=== PATIENT | female | born 1985 | race Caucasian/White ===

== ENCOUNTER 2016-02-27 02:30 | Inpatient (IN) | payer OTHER ==
[~2016-02-27] VITALS: Ht 157.5 cm; Wt 100.0 kg
[~2016-02-27 02:30] MED LIST: ACET50TA PO; MOTR200T44 PO; PRENTAB55 PO
[2016-02-27 03:11] LABS: MEAN CORPUSCULAR HEMOGLOBIN 26.6 pg (27.0-33.0); MEAN CORPUSCULAR HGB CONC 32.4 g/dl (32.0-36.5); MEAN CORPUSCULAR VOLUME 82.2 fl (80.0-96.0); RED CELL DISTRIBUTION WIDTH 15.8 % (11.5-14.5); WHITE BLOOD COUNT 10.3 K/mm3 (4.0-10.0)
--- NOTE | 2016-02-27 03:39 | HPE ---
DATE OF ADMISSION: 02/27/2016 HISTORY: 30-year-old (G) 5, para (P) 2 female at 41-4/7 weeks gestation by 10-week ultrasound, estimated date of confinement (EDC) of 02/15/2016, presents after spontaneous loss of fluid at home on the evening of admission. She then began to contract. Leaking continued. She drove from [place], [place] to get here. Contractions became quite intense. COURSE: The patient's care started at 11 weeks gestation on 07/23/2015. Her first trimester blood pressure was 116/66. course was unremarkable. OBSTETRICAL HISTORY: 1. Spontaneous . 2. December 2011, spontaneous delivery of 7 pound 3 ounce male infant at 42 weeks. 3. 2012, spontaneous . 4. 2014, 40-6/7 weeks, 8 pound 7 ounce vaginal delivery of a female infant, no complications. MEDICAL HISTORY: Noncontributory. SURGICAL HISTORY: None. ALLERGIES: No known drug allergies. SOCIAL HISTORY: The patient denies cigarettes, alcohol or drug use. She lives in [place], [place]. FAMILY HISTORY: Noncontributory. PHYSICAL EXAMINATION: VITAL SIGNS: Blood pressure 122/80, weight 228. She appears uncomfortable. HEAD/NECK: Examination normal. LUNGS: Clear. HEART: Regular rate and rhythm. ABDOMEN: Nontender. Gravid. Cervix is 4 cm, 80%, -2, ruptured, clear fluid. EXTREMITIES: Nontender. LABORATORIES: Blood type A positive. Rubella immune. RPR nonreactive. Hepatitis B and C negative. HIV negative. Diabetes screen 77. ASSESSMENT: 30-year-old (G) 5, para (P) 2 female at 41-4/7 weeks gestation presents with ruptured membranes in active labor. Patient is admitted on 02/27/2016.
[2016-02-27] MEDS ORDERED: PROMETHAZINE 25 MG TAB PO PRN (06:00)
[2016-02-27] MEDS ORDERED: RHOGAM 300 MCG (1500 IU) INJ (J2790) IM SCH (06:00)
[2016-02-27] MEDS ORDERED: DOCUSATE SODIUM 100 MG CAP PO PRN (06:00)
[2016-02-27] MEDS ORDERED: LIDOCAINE 1% MDV INJ 50 ML VIAL INFIL ONE (06:00)
[2016-02-27] MEDS ORDERED: DIBUCAINE 1% OINTMENT 30GM TOP PRN (06:00)
[2016-02-27] MEDS ORDERED: MEASLES,MUMPS,RUBELLA VACCINE INJ (MMR-II) (90707) SC SCH (06:00)
[2016-02-27] MEDS ORDERED: METHYLERGONOVINE MALEATE 0.2 MG TAB PO PRN (06:00)
[2016-02-27 07:51] VITALS: BP 133/65
[2016-02-27] MEDS: ACETAMINOPHEN 500 MG TAB PO PRN ×2 (10:00→18:52)
[2016-02-27] MEDS: PRENATAL VITAMIN TAB PO SCH (10:00)
--- NOTE | 2016-02-27 13:33 | DN ---
DATE: 02/27/2016 PREDELIVERY DIAGNOSIS: A 41 and 5/7 weeks gestation in labor. POSTDELIVERY DIAGNOSIS: Delivered. PROCEDURE: Spontaneous vaginal delivery. ESTIMATED BLOOD LOSS: 300 mL. PRACTICE NURSE: Dr. Zachary Marmolejo. ANESTHESIA: None. FINDINGS: An 8 pound, 5 ounce female with scores of 9 and 9. DELIVERY SUMMARY: After a short second stage, the patient has spontaneous delivery of an 8 pound, 5 ounce female infant, scores of 9 and 9, with no delivery anesthesia. The shoulders delivered spontaneously with ease. The infant was handed to the mother. Cord was clamped after cord pulsations had stopped and the cord was cut. The placenta delivered spontaneously and appeared to be intact. Observation of the placenta revealed a velamentous cord insertion. The patient did not receive pitocin after delivery of the placenta. A first-degree perineal laceration was repaired under local anesthesia with 3-0 Chromic in the usual fashion. Sponge and needle counts were correct.
[2016-02-27] MEDS: IBUPROFEN 800 MG TAB PO PRN (14:16)
[2016-02-27 18:00] VITALS: BP 134/62
[2016-02-28] MEDS: IBUPROFEN 800 MG TAB PO PRN (03:22)
[2016-02-28 06:00] VITALS: BP 124/60
[2016-02-28] MEDS: PRENATAL VITAMIN TAB PO SCH (07:59)
== END 2016-02-28 09:55 | disposition home or self-care (01) | DRG 560 ==
LOC: M LDI 02:30 → M OBS 07:43
PROVIDERS: ADMIT Specialist; ATTEND Specialist
PROC: 10E0XZZ Delivery of Products of Conception, External Approach (ICD-10-PCS; principal; 2016-02-27)
PROC: 0HQ9XZZ Repair Perineum Skin, External Approach (ICD-10-PCS; 2016-02-27)
DX: O48.0 Post-term pregnancy (principal); O70.0 First degree perineal laceration during delivery; Z37.0 Single live birth; Z3A.41 41 weeks gestation of pregnancy